=== PATIENT | female | born 1955 | race Caucasian/White ===

== ENCOUNTER → 2017-10-27 | Outpatient (CLI) | payer BC ==
--- NOTE | 2017-10-27 13:24 | BD ---
EXAMINATION TYPE: Axial Bone Density DATE OF EXAM: 10/27/2017 COMPARISON: NONE CLINICAL HISTORY: Height: 4 ft 10 1/2 in Weight: 134 FRAX RISK QUESTIONS: History of Fracture in Adulthood: YES RISK FACTORS HISTORY OF: Postmenopausal woman: AGE 48 MEDICATIONS: Additional Medications: PRILOSEC, CELEXA, TAZADONE, XANAX Additional History: EXAM MEASUREMENTS: Bone mineral densitometry was performed using the [employer] System. Bone mineral density as measured about the Lumbar spine is: ----- L1-L4(G/cm2): 1.125 T Score Values are as follows: ----- L2: -0.8 ----- L3: -0.1 ----- L4: 0.0 ----- L1-L4: -0.5 Bone mineral density has: INCREASED 1.3 % since study of: 2010 Bone mineral density about the R hip (g/cm2): 0.680 Bone mineral density about the L hip (g/cm2): 0.672 T Score values are as follows: -----R Neck: -2.6 -----L Neck: -2.6 -----R Total: -1.7 -----L Total: -1.9 Bone mineral density has: DECREASED -1.6 % since study of: 2010 IMPRESSION: Osteoporosis (T Score less than -2.5). There is increased fracture risk and therapy is usually indicated based on age. Re-Screen 1-2 years. NOTE: T-SCORE=SD OF THE YOUNG ADULT MEAN.
--- NOTE | 2017-10-31 10:34 | MM ---
Reason for exam: screening (asymptomatic). Last mammogram was performed 1 year and 10 months ago. History: Patient is postmenopausal. Family history of breast cancer in maternal cousin. Took estrogen for 3 years. Physical Findings: A clinical breast exam by your physician is recommended on an annual basis and results should be correlated with mammographic findings. MG Screening Mammo w CAD Bilateral CC and MLO view(s) were taken. Prior study comparison: December 17, 2015, bilateral MG screening mammo w CAD. March 01, 2014, bilateral MG screening mammo w CAD. There are scattered fibroglandular densities. There is chronic nodularity in the right breast. There is no discrete abnormality. ASSESSMENT: Benign, BI-RAD 2 RECOMMENDATION: Routine screening mammogram of both breasts in 1 year.
== END | disposition home or self-care (01) ==
LOC: RADMAMWWP 12:07
PROVIDERS: ATTEND Obstetrics & Gynecology
DX: Z12.31 Encounter for screening mammogram for malignant neoplasm of breast (principal); M81.0 Age-related osteoporosis without current pathological fracture
CPT/HCPCS: 77067; 77080

== ENCOUNTER → 2018-12-09 | Outpatient (CLI) | payer BC ==
--- NOTE | 2018-12-12 09:31 | MM ---
Reason for exam: screening (asymptomatic). Last mammogram was performed 1 year and 1 month ago. History: Patient is postmenopausal. Family history of breast cancer in maternal cousin. Took hormonal contraceptives for 20 years. Took estrogen for 3 years. Physical Findings: A clinical breast exam by your physician is recommended on an annual basis and results should be correlated with mammographic findings. MG Screening Mammo w CAD Bilateral CC and MLO view(s) were taken. Prior study comparison: October 27, 2017, bilateral MG screening mammo w CAD. December 17, 2015, bilateral MG screening mammo w CAD. There are scattered fibroglandular densities. Asymmetric breast tissue left outer breast, stable. There is no discrete abnormality. ASSESSMENT: Negative, BI-RAD 1 RECOMMENDATION: Routine screening mammogram of both breasts in 1 year.
== END ==
LOC: RADMAMWWP 10:59
PROVIDERS: ATTEND Obstetrics & Gynecology
DX: Z12.31 Encounter for screening mammogram for malignant neoplasm of breast (principal); Z80.3 Family history of malignant neoplasm of breast
CPT/HCPCS: 77067

== ENCOUNTER → 2020-10-10 | Outpatient (CLI) | payer BC ==
--- NOTE | 2020-10-14 08:53 | MM ---
Reason for exam: screening (asymptomatic). Last mammogram was performed 1 year and 10 months ago. History: Patient is postmenopausal. Family history of breast cancer in maternal cousin. Took hormonal contraceptives for 20 years. Took estrogen for 3 years. Physical Findings: A clinical breast exam by your physician is recommended on an annual basis and results should be correlated with mammographic findings. MG Screening Mammo w CAD Bilateral CC and MLO view(s) were taken. Prior study comparison: December 09, 2018, bilateral MG screening mammo w CAD. October 27, 2017, bilateral MG screening mammo w CAD. There are scattered fibroglandular densities. There is chronic nodularity in the right breast. No significant changes when compared with prior studies. ASSESSMENT: Negative, BI-RAD 1 RECOMMENDATION: Routine screening mammogram of both breasts in 1 year.
== END | disposition home or self-care (01) ==
LOC: RADMAMWWP 13:53
PROVIDERS: ATTEND Obstetrics & Gynecology
DX: Z12.31 Encounter for screening mammogram for malignant neoplasm of breast (principal); Z78.0 Asymptomatic menopausal state; Z80.3 Family history of malignant neoplasm of breast
CPT/HCPCS: 77067

== ENCOUNTER → 2021-11-25 | Outpatient (CLI) | payer BC ==
--- NOTE | 2021-11-27 08:03 | BD ---
EXAMINATION TYPE: Axial Bone Density DATE OF EXAM: 11/25/2021 COMPARISON: 10.27.2017 CLINICAL HISTORY: 66 years year old Female. ICD-10 CODE: N95.1 MENOPAUSAL Height: 59IN Weight: 141 FRAX RISK QUESTIONS: History of Fracture in Adulthood: YES Secondary Osteoporosis: RISK FACTORS HISTORY OF: Postmenopausal woman: YES Take estrogen and/or progesterone medications: ESTROGEN How lon Lost more than 2 inches in height since high school: YES MEDICATIONS: Additional Medications: REFLUX MED, Additional History: LT ANKLE FRACTURE EXAM MEASUREMENTS: Bone mineral densitometry was performed using the [employer] System. Bone mineral density as measured about the Lumbar spine is: ----- L1-L4(G/cm2): 1.126 T Score Values are as follows: ----- L1: -0.7 ----- L2: -0.9 ----- L3: -0.6 ----- L4: 0.2 ----- L1-L4: -0.5 Bone mineral density has: Decreased -1.3% since study of: 10.27.2017 Bone mineral density about the R hip (g/cm2): 0.794 Bone mineral density about the L hip (g/cm2): 0.738 T Score values are as follows: -----R Neck: -2.5 -----L Neck: -2.8 -----R Total: -1.7 -----L Total: -2.1 Bone mineral density has: Decreased -2.4% since study of: 10.27.2017 FRAX%s: The graph provided illustrates a 25% chance for a major osteoporotic fx and a 6.9% chance for the hips probability for fx in 10 years time. IMPRESSION: Osteopenia (T Score between -2.5 and -1). There is slightly increased risk of fracture and the patient may be considered for treatment. Re-Screen 2-5 years. NOTE: T-SCORE=SD OF THE YOUNG ADULT MEAN.
== END | disposition home or self-care (01) ==
LOC: RADMAMWWP 14:24
PROVIDERS: ATTEND Obstetrics & Gynecology
DX: Z12.31 Encounter for screening mammogram for malignant neoplasm of breast (principal); Z78.0 Asymptomatic menopausal state
CPT/HCPCS: 77063; 77067; 77080

== ENCOUNTER → 2023-02-21 | Outpatient (CLI) | payer BC ==
--- NOTE | 2023-02-23 08:32 | MM ---
Reason for Exam: Screening (asymptomatic). Last mammogram was performed 1 year(s) and 3 month(s) ago. Patient History: Menarche at age 12. First Full-Term at age 22. Left ovary removed at age 48. Right ovary removed at age 48. Hysterectomy at age 48. Postmenopausal. Patient used Estrogen for 3 years. Patient used Hormonal Contraceptives for 20 years. Maternal cousin had breast cancer, age 46. Risk Values: Ly 5 year model risk: 1.5%. NCI Lifetime model risk: 5.0%. Prior Study Comparison: 12/09/2018 Bilateral Screening Mammogram, [facility]. 10/10/2020 Bilateral Screening Mammogram, [facility]. 11/25/2021 Bilateral MG 3D screening mammo w/cad, [facility]. Tissue Density: There are scattered fibroglandular densities. Findings: Analyzed By CAD. There is no suspicious group of microcalcifications or new suspicious mass in either breast. Overall Assessment: Negative, BI-RAD 1 Management: Screening Mammogram of both breasts in 1 year. . Patient should continue monthly self-breast exams. A clinical breast exam by your physician is recommended on an annual basis. This exam should not preclude additional follow-up of suspicious palpable abnormalities. Note on Ly scores and lifetime risk: 1. A Ly score greater than 3% is considered moderate risk. If this is the case, consider specialist referral to assess eligibility for a risk reducing agent. 2. If overall lifetime risk for the development of breast cancer is 20% or higher, the patient may qualify for future screening with alternating mammogram and breast MRI. Electronically signed and approved by: Jose Torres M.D. Radiologis
== END | disposition home or self-care (01) ==
LOC: RADMAMWWP 09:24
PROVIDERS: ATTEND Obstetrics & Gynecology
DX: Z12.31 Encounter for screening mammogram for malignant neoplasm of breast (principal); Z78.0 Asymptomatic menopausal state; Z80.3 Family history of malignant neoplasm of breast
CPT/HCPCS: 77063; 77067

== ENCOUNTER 2023-04-06 13:31 | Inpatient (IN) | payer BC, MEDICARE ==
--- NOTE | 2023-04-06 13:58 | ED ---
Abdominal Pain HPI - General Source: patient, RN notes reviewed <Goldie Richard - Last Filed: 04/06/23 13:55> - General Source: RN notes reviewed, old records reviewed Limitations: no limitations - History of Present Illness MD Complaint: abdominal pain -: hour(s) Location: suprapubic Radiation: suprapubic Migration to: epigastric Severity: severe Severity scale (1-10): 9 Quality: cramping, stabbing, aching Consistency: constant Improves With: nothing Worsens With: nothing Associated Symptoms: nausea Treatments Prior to Arrival: other (0) <Beto Reddy - Last Filed: 04/13/23 11:47> - General Stated Complaint: abd pain Time Seen by Provider: 04/06/23 13:55 - History of Present Illness Initial Comments: Patient is a 67-year-old female presenting to the ER via EMS with a chief complaint of abdominal pain. patient states she started Celebrex for knee pain. Patient reports this morning she woke up with excruciating lower abdominal pain with nausea and chills. She was seen by PCP and was told to come to ER for further evaluation. (Goldie Richard) This is a 67-year-old female to the ER for evaluation of abdominal pain. Patient is here for severe excruciating lower abdominal pain with nausea vomiting and chills. (Beto Reddy) - Related Data Home Medications Medication Instructions Recorded Confirmed ALPRAZolam [Xanax] 0.25 mg PO TID PRN 04/06/23 04/06/23 Citalopram Hydrobromide [CeleXA] 40 mg PO DAILY 04/06/23 04/06/23 Elderberry Fruit [Elderberry] 350 mg PO DAILY 04/06/23 04/06/23 Multivitamins, Thera [Multivitamin 1 tab PO DAILY 04/06/23 04/06/23 (formulary)] Omeprazole 20 mg PO DAILY 04/06/23 04/06/23 traZODone HCL [Desyrel] 50 mg PO HS 04/06/23 04/06/23 Previous Rx's Medication Instructions Recorded Docusate [Colace] 100 mg PO BID #30 capsule 04/08/23 HYDROcodone/APAP 5-325MG [Davison 1 tab PO Q6HR PRN 3 Days #12 tab 04/08/23 5-325] Ibuprofen [Motrin] 600 mg PO Q8HR PRN #30 tab 04/08/23 Oseltamivir 6Mg/ml Oral Susp 30 mg PO Q12HR 3 Days #6 each 04/08/23 [Tamiflu] Amoxic-Pot Clav 875-125Mg 1 tab PO BID 3 Days #6 tab 04/10/23 [Augmentin 875-125] HYDROcodone/APAP 5-325MG [Davison 1 tab PO Q6HR PRN 3 Days #10 tab 04/10/23 5-325] Allergies Allergy/AdvReac Type Severity Reaction Status Date / Time azithromycin Allergy Unknown Verified 04/07/23 10:22 [From Zithromax Z-Bhupinder] erythromycin base Allergy Unknown Verified 04/07/23 10:22 morphine Allergy Hallucinati Verified 04/07/23 10:22 ons prednisone Allergy Unknown Verified 04/07/23 10:22 Review of Systems ROS Other: All systems not noted in ROS Statement are negative. <Goldie Richard - Last Filed: 04/06/23 13:55> ROS Other: All systems not noted in ROS Statement are negative. <Beto Reddy - Last Filed: 04/13/23 11:47> ROS Statement: Those systems with pertinent positive or pertinent negative responses have been documented in the HPI. General Exam <Goldie Richard - Last Filed: 04/06/23 13:55> General appearance: alert, in no apparent distress, anxious Head exam: Present: atraumatic, normocephalic, normal inspection Eye exam: Present: normal appearance, PERRL, EOMI. Absent: scleral icterus, conjunctival injection, periorbital swelling ENT exam: Present: normal exam, mucous membranes moist Neck exam: Present: normal inspection. Absent: tenderness, meningismus, lymphadenopathy Respiratory exam: Present: normal lung sounds bilaterally. Absent: respiratory distress, wheezes, rales, rhonchi, stridor Cardiovascular Exam: Present: regular rate, normal rhythm, normal heart sounds. Absent: systolic murmur, diastolic murmur, rubs, gallop, clicks GI/Abdominal exam: Present: soft, normal bowel sounds. Absent: distended, tenderness, guarding, rebound, rigid Extremities exam: Present: normal inspection, full ROM, normal capillary refill. Absent: tenderness, pedal edema, joint swelling, calf tenderness Back exam: Present: normal inspection Neurological exam: Present: alert, oriented X3, CN II-XII intact Psychiatric exam: Present: normal affect, normal mood Skin exam: Present: warm, dry, intact, normal color. Absent: rash <Beto Reddy - Last Filed: 04/13/23 11:47> - General Exam Comments Initial Comments: Visual Physical Exam Vital signs reviewed General: Well-appearing, nontoxic, no acute distress., appears uncomfortable and in pain Head: Normocephalic, atraumatic Eyes: PERRLA, EOMI ENT: Airway patent Chest: Nonlabored breathing Skin: No visual rash, normal skin tone Neuro: Alert and oriented 3 Musculoskeletal: No gross abnormalities (Goldie Richard) Course <Beto Reddy - Last Filed: 04/13/23 11:47> Vital Signs 04/06/23 04/06/23 04/06/23 14:48 17:19 20:00 Temperature 98.8 F 97.9 F Pulse Rate 60 59 L Respiratory 18 16 16 Rate Blood Pressure 139/77 127/71 O2 Sat by Pulse 97 98 Oximetry - Reevaluation(s) Reevaluation #1: 04/06/23 18:19 Medical record is reviewed (Beto Reddy) Reevaluation #2: 04/06/23 18:19 Patient's pain is controlled (Beto Reddy) Reevaluation #3: 04/06/23 18:19 Patient informed of results and questions answered (Beto Reddy) Reevaluation #4: 04/06/23 18:20 Was pt. sent in by a medical professional or institution (, PA, KIDS CLUB ATTENDANT, urgent care, hospital, or alf...) When possible be specific @ -no Did you speak to anyone other than the patient for history (EMS, parent, family, police, friend...)? What history was obtained from this source @ -no Did you review nursing and triage notes (agree or disagree)? Why? @ -agree Are old charts reviewed (outside hosp., previous admission, EMS record, old EKG, old radiological studies, urgent care reports/EKG's, alf records)? Report findings @ -yes Differential Diagnosis (chest pain, altered mental status, abdominal pain women, abdominal pain men, vaginal bleeding, weakness, fever, dyspnea, syncope, headache, dizziness, GI bleed, back pain, seizure, CVA, palpatations, mental health, musculoskeletal)? @ -prior EKG interpreted by me (3pts min.). @ -no X-rays interpreted by me (1pt min.). @ -yes negative for acute disease CT interpreted by me (1pt min.). @ -Yes positive for appendicitis U/S interpreted by me (1pt. min.). @ -no What testing was considered but not performed or refused? (CT, X-rays, U/S, labs)? Why? @ -none What meds were considered but not given or refused? Why? @ -none Did you discuss the management of the patient with other professionals (professionals i.e. , PA, KIDS CLUB ATTENDANT, lab, RT, psych nurse, manager social media, order dispatcher, teacher, consumer loan officer, lining caser)? Give summary @ -no Was smoking cessation discussed for >3mins.? @ -no Was critical care preformed (if so, how long)? @ -no Were there social determinants of health that impacted care today? How? (Homelessness, low income, unemployed, alcoholism, drug addiction, t ransportation, low edu. Level, literacy, decrease access to med. care, nursing home, rehab)? @ -none Was there de-escalation of care discussed even if they declined (Discuss DNR or withdrawal of care, Hospice)? DNR status @ -no What co-morbidities impacted this encounter? (DM, HTN, Smoking, COPD, CAD, Can cer, CVA, ARF, Chemo, Hep., AIDS, mental health diagnosis, sleep apnea, morbid obesity)? @ -none Was patient admitted / discharged? Hospital course, mention meds given and route, prescriptions, significant lab abnormalities, going to OR and other pertinent info. @ - 67 female positive for appendicitis and influenza. Patient will be admitted for surgical evaluation and treatment Admitted Undiagnosed new problem with uncertain prognosis? @ -no Drug Therapy requiring intensive monitoring for toxicity (Heparin, Nitro, Insulin, Cardizem)? @ -no Were any procedures done? @ -no Diagnosis/symptom? @ -Appendicitis and influenza Acute, or Chronic, or Acute on Chronic? @ -Acute Uncomplicated (without systemic symptoms) or Complicated (systemic symptoms)? @ -Complicated Side effects of treatment? @ -no Exacerbation, Progression, or Severe Exacerbation? @ -exacerbation Poses a threat to life or bodily function? How? (Chest pain, [place], [place], pneumonia, PE, COPD, DKA, ARF, appy, cholecystitis, CVA, Diverticulitis, Homicidal, Suicidal, threat to staff... and all critical care pts) @ -yes patient has appendicitis requiring surgery (Beto Reddy) Reevaluation #5: 04/06/23 18:20 Differential Abdominal Pain Women: Appendicitis, Cholecystitis, diverticulosis, ischemic bowel, pancreatitis, hepatitis, UTI, gastroenteritis, AAA, incarcerated hernia, bowel obstruction, constipation, inflammatory bowel, hepatitis, peptic ulcer disease, splenic infarction, perforated viscus, vulvitis, ovarian torsion, PID, kidney stone, placenta abruption, this is not meant to be an all-inclusive list (Beto Reddy) - Consultations Consultation #1: Spoke with Dr. Jacinto who agrees to admit this patient (Beto Reddy) Medical Decision Making <Goldie Rihcard - Last Filed: 04/06/23 13:55> - Lab Data Result diagrams: 04/10/23 05:59 04/10/23 05:59 - Radiology Data Radiology results: report reviewed (CT abdomen pelvis positive for appendicitis, chest x-ray is negative for acute disease), image reviewed <Beto Reddy - Last Filed: 04/13/23 11:47> - Medical Decision Making I performed the quick note portion of the exam. Electronically signed by Goldie Richard PA-C (Goldie Richard) 67 female positive for appendicitis and influenza. Patient will be admitted for surgical evaluation and treatment (Beto Reddy) - Lab Data Lab Results 04/06/23 04/06/23 04/06/23 Range/Units 14:10 14:10 14:10 WBC 22.7 H (3.8-10.6) k/uL RBC 4.38 (3.80-5.40) m/uL Hgb 13.1 (11.4-16.0) gm/dL Hct 38.2 (34.0-46.0) % MCV 87.2 (80.0-100.0) fL MCH 29.9 (25.0-35.0) pg MCHC 34.3 (31.0-37.0) g/dL RDW 13.1 (11.5-15.5) % Plt Count 313 (150-450) k/uL MPV 7.8 Sodium 138 (137-145) mmol/L Potassium 4.3 (3.5-5.1) mmol/L Chloride 108 H (98-107) mmol/L Carbon Dioxide 20 L (22-30) mmol/L Anion Gap 10 mmol/L BUN 24 H (7-17) mg/dL Creatinine 0.75 (0.52-1.04) mg/dL Est GFR (CKD-EPI)AfAm >90 (>60 ml/min/1.73 sqM) Est GFR (CKD-EPI)NonAf 82 (>60 ml/min/1.73 sqM) Glucose 97 (74-99) mg/dL Plasma Lactic Acid Kingsley (0.7-2.0) mmol/L Calcium 10.0 (8.4-10.2) mg/dL Total Bilirubin 0.5 (0.2-1.3) mg/dL AST 32 (14-36) U/L ALT 22 (4-34) U/L Alkaline Phosphatase 84 (38-126) U/L Troponin I (0.000-0.034) ng/mL Total Protein 7.3 (6.3-8.2) g/dL Albumin 4.5 (3.5-5.0) g/dL Amylase 68 (30-110) U/L Lipase 99 (23-300) U/L Urine Color Urine Appearance (Clear) Urine pH (5.0-8.0) Ur Specific [place] (1.001-1.035) Urine Protein (Negative) Urine Glucose (UA) (Negative) Urine Ketones (Negative) Urine Blood (Negative) Urine Nitrite (Negative) Urine Bilirubin (Negative) Urine Urobilinogen (<2.0) mg/dL Ur Leukocyte Esterase (Negative) Influenza Type A (PCR) Detected A (Not Detectd) Influenza Type B (PCR) Not Detected (Not Detectd) RSV (PCR) Not Detected (Not Detectd) SARS-CoV-2 (PCR) Not Detected (Not Detectd) 04/06/23 04/06/23 04/06/23 Range/Units 14:10 14:15 14:20 WBC (3.8-10.6) k/uL RBC (3.80-5.40) m/uL Hgb (11.4-16.0) gm/dL Hct (34.0-46.0) % MCV (80.0-100.0) fL MCH (25.0-35.0) pg MCHC (31.0-37.0) g/dL RDW (11.5-15.5) % Plt Count (150-450) k/uL MPV Sodium (137-145) mmol/L Potassium (3.5-5.1) mmol/L Chloride (98-107) mmol/L Carbon Dioxide (22-30) mmol/L Anion Gap mmol/L BUN (7-17) mg/dL Creatinine (0.52-1.04) mg/dL Est GFR (CKD-EPI)AfAm (>60 ml/min/1.73 sqM) Est GFR (CKD-EPI)NonAf (>60 ml/min/1.73 sqM) Glucose (74-99) mg/dL Plasma Lactic Acid Kingsley 1.9 (0.7-2.0) mmol/L Calcium (8.4-10.2) mg/dL Total Bilirubin (0.2-1.3) mg/dL AST (14-36) U/L ALT (4-34) U/L Alkaline Phosphatase (38-126) U/L Troponin I <0.012 (0.000-0.034) ng/mL Total Protein (6.3-8.2) g/dL Albumin (3.5-5.0) g/dL Amylase (30-110) U/L Lipase (23-300) U/L Urine Color Light Yellow Urine Appearance Clear (Clear) Urine pH 8.5 H (5.0-8.0) Ur Specific [place] 1.022 (1.001-1.035) Urine Protein Trace H (Negative) Urine Glucose (UA) Negative (Negative) Urine Ketones Negative (Negative) Urine Blood Negative (Negative) Urine Nitrite Negative (Negative) Urine Bilirubin Negative (Negative) Urine Urobilinogen <2.0 (<2.0) mg/dL Ur Leukocyte Esterase Negative (Negative) Influenza Type A (PCR) (Not Detectd) Influenza Type B (PCR) (Not Detectd) RSV (PCR) (Not Detectd) SARS-CoV-2 (PCR) (Not Detectd) 04/06/23 Range/Units 15:34 WBC (3.8-10.6) k/uL RBC (3.80-5.40) m/uL Hgb (11.4-16.0) gm/dL Hct (34.0-46.0) % MCV (80.0-100.0) fL MCH (25.0-35.0) pg MCHC (31.0-37.0) g/dL RDW (11.5-15.5) % Plt Count (150-450) k/uL MPV Sodium (137-145) mmol/L Potassium (3.5-5.1) mmol/L Chloride (98-107) mmol/L Carbon Dioxide (22-30) mmol/L Anion Gap mmol/L BUN (7-17) mg/dL Creatinine (0.52-1.04) mg/dL Est GFR (CKD-EPI)AfAm (>60 ml/min/1.73 sqM) Est GFR (CKD-EPI)NonAf (>60 ml/min/1.73 sqM) Glucose (74-99) mg/dL Plasma Lactic Acid Kingsley 1.4 (0.7-2.0) mmol/L Calcium (8.4-10.2) mg/dL Total Bilirubin (0.2-1.3) mg/dL AST (14-36) U/L ALT (4-34) U/L Alkaline Phosphatase (38-126) U/L Troponin I (0.000-0.034) ng/mL Total Protein (6.3-8.2) g/dL Albumin (3.5-5.0) g/dL Amylase (30-110) U/L Lipase (23-300) U/L Urine Color Urine Appearance (Clear) Urine pH (5.0-8.0) Ur Specific [place] (1.001-1.035) Urine Protein (Negative) Urine Glucose (UA) (Negative) Urine Ketones (Negative) Urine Blood (Negative) Urine Nitrite (Negative) Urine Bilirubin (Negative) Urine Urobilinogen (<2.0) mg/dL Ur Leukocyte Esterase (Negative) Influenza Type A (PCR) (Not Detectd) Influenza Type B (PCR) (Not Detectd) RSV (PCR) (Not Detectd) SARS-CoV-2 (PCR) (Not Detectd) Disposition <Goldie Richard - Last Filed: 04/06/23 13:55> Is patient prescribed a controlled substance at d/c from ED?: No Time of Disposition: 18:10 <Beto Reddy - Last Filed: 04/13/23 11:47> Clinical Impression: Abdominal pain, Appendicitis, Influenza A Disposition: ADMITTED IP TO THIS HOSP Condition: Fair
[2023-04-06 14:31] LABS: Appearance,Urine Clear (Clear); Bilirubin,Urine Negative (Negative); Blood,Urine Negative (Negative); Color,Urine Light Yellow; Glucose,Urine (UA) Negative (Negative); Ketones,Urine Negative (Negative); Leukocyte Esterase,Urine Negative (Negative); Nitrite,Urine Negative (Negative); PH, Urine 8.5 (5.0-8.0); Protein,Urine Trace (Negative); Specific Gravity,Urine 1.022 (1.001-1.035); Urobilinogen,Urine <2.0 mg/dL (<2.0)
[2023-04-06 15:44] LABS: HCT 38.2 % (34.0-46.0); HGB 13.1 gm/dL (11.4-16.0); MCH 29.9 pg (25.0-35.0); MCHC 34.3 g/dL (31.0-37.0); MCV 87.2 fL (80.0-100.0); Mean Platelet Volume 7.8; Platelet Count 313 k/uL (150-450); RBC 4.38 m/uL (3.80-5.40); RDW 13.1 % (11.5-15.5); WBC 22.7 k/uL (3.8-10.6)
[2023-04-06] MEDS: SODIUM CHLORIDE 0.9% 500 ML 500 ML IV STA (15:49)
[2023-04-06] MEDS: ONDANSETRON 4 MG/2 ML VIAL IVP STA (15:49)
[2023-04-06] MEDS: SODIUM CHLORIDE 0.9% 1,000 ML IV STA (15:49)
[2023-04-06 16:06] LABS: ALT 22 U/L (4-34); AST 32 U/L (14-36); African American GFR (CKD) >90 (>60 ml/min/1.73 sqM); Albumin 4.5 g/dL (3.5-5.0); Alkaline Phosphatase 84 U/L (38-126); Amylase 68 U/L (30-110); Anion Gap 10 mmol/L; Blood Urea Nitrogen 24 mg/dL (7-17); Carbon Dioxide 20 mmol/L (22-30); Chloride 108 mmol/L (98-107); Glucose 97 mg/dL (74-99); Lipase 99 U/L (23-300); Non-African American GFR(CKD) 82 (>60 ml/min/1.73 sqM); Potassium 4.3 mmol/L (3.5-5.1); Sodium 138 mmol/L (137-145); Total Bilirubin 0.5 mg/dL (0.2-1.3); Total Protein 7.3 g/dL (6.3-8.2)
--- NOTE | 2023-04-06 16:37 | CT ---
EXAMINATION TYPE: CT abdomen pelvis w con DATE OF EXAM: 04/06/2023 COMPARISON: 10/24/2009 INDICATION: abdominal pain, cramping DLP: 692 mGycm, Automated exposure control for dose reduction was used. CONTRAST: 100 mL of Isovue 300. Study performed without Oral Contrast TECHNIQUE: Axial images were obtained from above the diaphragm to the pubic rami in the axial plane a t 5 mm thick sections. Reconstructed images are reviewed on the computer in the coronal plane. FINDINGS: Limited CT sections are obtained the lung bases. The lung bases are clear. Small to moderate sized hiatal hernia is present CT ABDOMEN: Liver: There is marked enlargement of a large hepatic cyst in the right lobe liver currently measurin g 9.7 x 6.8 cm. Spleen: Normal Pancreas: Normal Adrenal glands: The adrenal glands are normal. Gallbladder: Surgically absent Kidneys: No masses are evident. No hydronephrosis is present. No cysts are present. Delayed images were obtained through the kidneys which remain unremarkable. Aorta: Normal Inferior vena cava: Normal. CT PELVIS: Loops of bowel within the abdomen and pelvis are normal. Scattered diverticuli are present within the sigmoid colon without evidence of acute diverticulitis. The studies without oral contrast limitin g bowel evaluation. Appendix: The appendix is dilated measuring 1.1 cm. Normal less than 0.7 cm. Very minimal inflammator y change may be adjacent. No obstructing appendicolith is identified. No abscess formation or free ai r is evident. Findings could suggest very early appendicitis. Clinical management of any suspected ap pendicitis is recommended. Urinary bladder: Normal. Genitourinary structures: Uterus and ovaries are not identified. Osseous structures: No suspicious lytic or sclerotic lesions. IMPRESSION: 1. Dilated appendix at 1.1 cm. Very minimal adjacent inflammatory change may be present. Clinical ma nagement of any suspected early appendicitis is recommended. 2. Enlarged hepatic cyst 3. Diverticulosis without acute diverticulitis.
[2023-04-06] MEDS: HYDROmorphone 1 MG/ML 1 ML SYRINGE IVP STA (17:37)
--- NOTE | 2023-04-06 18:13 | XR ---
EXAMINATION TYPE: XR chest 2V DATE OF EXAM: 04/06/2023 5:49 PM CLINICAL INDICATION:Female, 67 years old with history of cough; [facility] COMPARISON: None TECHNIQUE: XR chest 2V Frontal and lateral views of the chest. FINDINGS: Lungs/Pleura: There is no evidence of pleural effusion, focal consolidation, or pneumothorax. Pulmonary vascularity: Unremarkable. Heart/mediastinum: Cardiomediastinal silhouette is unremarkable. Musculoskeletal: No acute osseous pathology. IMPRESSION: No acute cardiopulmonary disease/process.
[2023-04-06] MEDS ORDERED: NALOXONE 0.4 MG/ML 1 ML VIAL IV PRN (18:17)
[2023-04-06] MEDS: ONDANSETRON 4 MG/2 ML VIAL IVP PRN (19:12)
[2023-04-06] MEDS: OSELTAMIVIR 75 MG CAP PO STA (19:22)
[2023-04-06] MEDS: SODIUM CHLORIDE 0.9% 1,000 ML IV SCH (19:23)
[2023-04-06] MEDS: AMPICILLIN-SULBACTAM 3 GM in SODIUM CHLORIDE 0.9% 100 ML IVPB STA (19:26)
[2023-04-06] MEDS: ALPRAZolam 0.25 MG TAB PO PRN (22:11)
[2023-04-06] MEDS: traZODone HCL 50 MG TAB PO SCH (22:11)
[2023-04-06] MEDS: HYDROmorphone 1 MG/ML 1 ML SYRINGE IVP PRN (22:11)
[2023-04-07] MEDS: AMPICILLIN-SULBACTAM 3 GM in SODIUM CHLORIDE 0.9% 100 ML IVPB SCH (01:11)
[2023-04-07] MEDS: OSELTAMIVIR 75 MG CAP PO SCH (07:53)
[2023-04-07 09:48] LABS: Basophils % (A) 0 %; Eosinophils % (A) 0 %; HCT 36.3 % (34.0-46.0); HGB 11.7 gm/dL (11.4-16.0); Lymphocytes # (A) 1.4 k/uL (1.0-4.8); Lymphocytes % (A) 10 %; MCH 29.1 pg (25.0-35.0); MCHC 32.2 g/dL (31.0-37.0); MCV 90.4 fL (80.0-100.0); Mean Platelet Volume 7.7; Monocytes # (A) 0.7 k/uL (0-1.0); Monocytes % (A) 5 %; Neutrophils # (A) 11.8 k/uL (1.3-7.7); Neutrophils % (A) 84 %; Platelet Count 269 k/uL (150-450); RBC 4.01 m/uL (3.80-5.40); RDW 13.7 % (11.5-15.5)
--- NOTE | 2023-04-07 09:59 | P.GSHP ---
History of Present Illness H&P Date: 04/07/23 CHIEF COMPLAINT: Abdominal pain HISTORY OF PRESENT ILLNESS: This is a 67-year-old female who presented to the hospital with complaints of abdominal pain with weakness and dry heaves that started yesterday. Patient had a couple episodes of diarrhea. She also had chills and sweats. She reports that the pain was very severe yesterday prior to coming in. She reports that the pain was located across the lower abdomen and moved up in a circular formation towards the umbilicus. CT scan abdomen and pelvis did show evidence of a dilated appendix 1.1 cm. Very minimal adjacent inflammatory changes. Patient did have evidence of leukocytosis. She is also influenza A positive. She has been on Celebrex over the last 3 days for her knee pain. Patient denies any cardiac history. Past surgical history does include cholecystectomy, hysterectomy and 3 C-sections. Patient currently denies any abdominal pain since she received pain medication this morning. Patient denies any cough or shortness of breath. PAST MEDICAL HISTORY: Depression, anxiety PAST SURGICAL HISTORY: see below MEDICATIONS: See below ALLERGIES: See below SOCIAL HISTORY: No illicit drug use. REVIEW OF SYSTEMS: CONSTITUTIONAL: Denies fever or chills. HEENT: Denies blurred vision, vision changes, or eye pain. Denies hemoptysis CARDIOVASCULAR: Denies chest pain or pressure. RESPIRATORY: No shortness of breath. GASTROINTESTINAL: See HPI for pertinent findings HEMATOLOGIC: Denies bleeding disorders. GENITOURINARY: Denies any blood in urine or increased urinary frequency. SKIN: Denies pruitis. Denies rash. PHYSICAL EXAM: VITAL SIGNS: Reviewed GENERAL: Well-developed in no acute distress. HEENT: No sclera icterus. Extraocular movements grossly intact. Moist buccal mucosa. Head is atraumatic, normocephalic. No nasal drainage. ABDOMEN: Soft. Nondistended. Nontender. Patient has received pain medicine NEUROLOGIC: Alert and oriented. Cranial nerves II through XII grossly intact. LABORATORY DATA: WBC 22.7 down to 14 Hgb 11.7 platelets 269 Sodium 138 potassium is 4.3 creatinine 0.75 Lactic acid 1.4 Liver enzymes normal lipase 99 Urinalysis negative for infection Influenza A detected IMAGING: CT scan abdomen pelvis reports dilated appendix at 1.1 cm. Very minimal adjacent inflammatory change may be present. Clinical management of any suspected early appendicitis is recommended. Enlarged hepatic cyst. Diverticulosis without acute diverticulitis. ASSESSMENT: 1. Acute appendicitis 2. Influenza A positive PLAN: -Patient scheduled for laparoscopic appendectomy today with Dr. Bray -Continue IV antibiotics -Continue IV fluids -Continue pain management Physician Credit Operations Specialist note has been reviewed by physician. Signing provider agrees with the documented findings, assessment, and plan of care. I have personally seen and examined the patient, reviewed the PROJECT DEVELOPMENT MANAGER /PAs history, e xam and MDM and agree with the assessment and plan as written. Based on total visit time, I have performed more than 50% of the visit. As above: Patient seen and evaluated. Started having intense lower abdominal pain right greater than left yesterday. Came to the ER and had CAT scan performed. CAT scan reviewed and does demonstrate appendiceal inflammation. Patient also with influenza A. She is not having many symptoms from that currently. White blood cell count is elevated which could be a combination of her influenza and appendicitis. Options and clinical scenario discussed with patient. Will proceed with laparoscopic, possible open appendectomy at this time. Risks of bleeding, infection, abscess, conversion to an open procedure, leak, hernia, bladder bowel and ureteral injury. Patient is agreeable and would like to proceed. Past Medical History Past Medical History: Hyperlipidemia Additional Past Medical History / Comment(s): "racing heart" History of Any Multi-Drug Resistant Organisms: None Reported Past Surgical History: Adenoidectomy, Section, Hysterectomy, Orthopedic Surgery Past Psychological History: Anxiety Smoking Status: Never smoker Past Alcohol Use History: Occasional Past Drug Use History: None Reported Medications and Allergies Home Medications Medication Instructions Recorded Confirmed Type ALPRAZolam [Xanax] 0.25 mg PO TID PRN 04/06/23 04/06/23 History Celecoxib [CeleBREX] 200 mg PO ONCE PRN 04/06/23 04/06/23 History Citalopram Hydrobromide [CeleXA] 40 mg PO DAILY 04/06/23 04/06/23 History Elderberry Fruit [Elderberry] 350 mg PO DAILY 04/06/23 04/06/23 History Multivitamins, Thera [Multivitamin 1 tab PO DAILY 04/06/23 04/06/23 History (formulary)] Omeprazole 20 mg PO DAILY 04/06/23 04/06/23 History traZODone HCL [Desyrel] 50 mg PO HS 04/06/23 04/06/23 History Allergies Allergy/AdvReac Type Severity Reaction Status Date / Time azithromycin Allergy Unknown Verified 04/07/23 10:22 [From Zithromax Z-Bhupinder] erythromycin base Allergy Unknown Verified 04/07/23 10:22 morphine Allergy Hallucinati Verified 04/07/23 10:22 ons prednisone Allergy Unknown Verified 04/07/23 10:22 Surgical - Exam Vital Signs Temp Pulse Resp BP Pulse Ox 98.8 F 60 18 139/77 97 04/06/23 14:48 04/06/23 14:48 04/06/23 14:48 04/06/23 14:48 04/06/23 14:48 Results - Labs 04/07/23 09:08 04/07/23 09:08 Abnormal Lab Results - Last 24 Hours (Table) 04/06/23 04/06/23 04/06/23 Range/Units 14:10 14:10 14:10 WBC 22.7 H (3.8-10.6) k/uL Neutrophils # (1.3-7.7) k/uL Chloride 108 H (98-107) mmol/L Carbon Dioxide 20 L (22-30) mmol/L BUN 24 H (7-17) mg/dL Urine pH (5.0-8.0) Urine Protein (Negative) Influenza Type A (PCR) Detected A (Not Detectd) 04/06/23 04/07/23 Range/Units 14:20 09:08 WBC 14.0 H (3.8-10.6) k/uL Neutrophils # 11.8 H (1.3-7.7) k/uL Chloride (98-107) mmol/L Carbon Dioxide (22-30) mmol/L BUN (7-17) mg/dL Urine pH 8.5 H (5.0-8.0) Urine Protein Trace H (Negative) Influenza Type A (PCR) (Not Detectd) Diabetes panel 04/06/23 Range/Units 14:10 Sodium 138 (137-145) mmol/L Potassium 4.3 (3.5-5.1) mmol/L Chloride 108 H (98-107) mmol/L Carbon Dioxide 20 L (22-30) mmol/L BUN 24 H (7-17) mg/dL Creatinine 0.75 (0.52-1.04) mg/dL Glucose 97 (74-99) mg/dL Calcium 10.0 (8.4-10.2) mg/dL AST 32 (14-36) U/L ALT 22 (4-34) U/L Alkaline Phosphatase 84 (38-126) U/L Total Protein 7.3 (6.3-8.2) g/dL Albumin 4.5 (3.5-5.0) g/dL Calcium panel 04/06/23 Range/Units 14:10 Calcium 10.0 (8.4-10.2) mg/dL Albumin 4.5 (3.5-5.0) g/dL Pituitary panel 04/06/23 Range/Units 14:10 Sodium 138 (137-145) mmol/L Potassium 4.3 (3.5-5.1) mmol/L Chloride 108 H (98-107) mmol/L Carbon Dioxide 20 L (22-30) mmol/L BUN 24 H (7-17) mg/dL Creatinine 0.75 (0.52-1.04) mg/dL Glucose 97 (74-99) mg/dL Calcium 10.0 (8.4-10.2) mg/dL Adrenal panel 04/06/23 Range/Units 14:10 Sodium 138 (137-145) mmol/L Potassium 4.3 (3.5-5.1) mmol/L Chloride 108 H (98-107) mmol/L Carbon Dioxide 20 L (22-30) mmol/L BUN 24 H (7-17) mg/dL Creatinine 0.75 (0.52-1.04) mg/dL Glucose 97 (74-99) mg/dL Calcium 10.0 (8.4-10.2) mg/dL Total Bilirubin 0.5 (0.2-1.3) mg/dL AST 32 (14-36) U/L ALT 22 (4-34) U/L Alkaline Phosphatase 84 (38-126) U/L Total Protein 7.3 (6.3-8.2) g/dL Albumin 4.5 (3.5-5.0) g/dL
[2023-04-07] MEDS: HEPARIN SODIUM,PORCINE 5,000 UNIT/ML 1 ML VIAL SQ ONE (10:05)
[2023-04-07 10:07] LABS: ALT 31 U/L (4-34); AST 38 U/L (14-36); African American GFR (CKD) >90 (>60 ml/min/1.73 sqM); Albumin 3.3 g/dL (3.5-5.0); Alkaline Phosphatase 64 U/L (38-126); Anion Gap 5 mmol/L; Blood Urea Nitrogen 18 mg/dL (7-17); Calcium 8.4 mg/dL (8.4-10.2); Carbon Dioxide 21 mmol/L (22-30); Chloride 115 mmol/L (98-107); Glucose 81 mg/dL (74-99); Magnesium 2.1 mg/dL (1.6-2.3); Non-African American GFR(CKD) 82 (>60 ml/min/1.73 sqM); Phosphorus 3.8 mg/dL (2.5-4.5); Potassium 4.4 mmol/L (3.5-5.1); Sodium 141 mmol/L (137-145); Total Bilirubin 0.4 mg/dL (0.2-1.3); Total Protein 5.8 g/dL (6.3-8.2)
[2023-04-07] MEDS: DEXAMETHASONE SOD PHOSPHATE 4 MG/ML 1 ML VIAL IVP ONE (10:08)
[2023-04-07] MEDS: BUPIVACAINE (PF) 0.25% 30 ML VIAL SQ ONE ×2 (10:13→10:49)
[2023-04-07] MEDS ORDERED: NEOSTIGMINE 1 MG/ML 10 ML VIAL ONE (10:25)
[2023-04-07] MEDS ORDERED: LIDOCAINE 1% INJ 10MG/ML (20 ML MDV) ONE (10:25)
[2023-04-07] MEDS ORDERED: PROPOFOL 10 MG/ML 20 ML VIAL IV ONE (10:25)
[2023-04-07] MEDS ORDERED: SUCCINYLCHOLINE CHLORIDE 200 MG/10 ML VIAL IV ONE (10:25)
[2023-04-07] MEDS ORDERED: GLYCOPYRROLATE 0.2 MG/ML 2 ML VIAL ONE (10:25)
[2023-04-07] MEDS ORDERED: ROCURONIUM 10 MG/ML (5 ML VIAL) IV ONE (10:25)
[2023-04-07] MEDS ORDERED: MIDAZOLAM 2 MG/2 ML VIAL ONE (10:25)
[2023-04-07] MEDS ORDERED: ePHEDrine 50 MG/ML 1 ML VIAL ONE (10:25)
[2023-04-07] MEDS ORDERED: fentaNYL (PF) 50 MCG/ML 2 ML AMP ONE (10:25)
[2023-04-07] MEDS: LACTATED RINGERS 1,000 ML IV ONE (11:18)
--- NOTE | 2023-04-07 11:49 | P.OP ---
Date of Procedure: 04/07/23 Procedure(s) Performed: PREOPERATIVE DIAGNOSIS: Acute appendicitis POSTOPERATIVE DIAGNOSIS: Same PROCEDURE: Laparoscopic appendectomy SURGEON: Katarina EBL: 25 cc ANESTHESIA: General COMPLICATIONS: None OPERATIVE PROCEDURE: The patient was brought and placed on the operating table in the supine position. The patient was placed under general anesthesia. The abdomen was prepped and draped in the usual sterile fashion. A small vertical infraumbilical incision was made. The fascia was retracted anteriorly with Agnieszka forceps. The Veress needle was advanced into the peritoneal cavity. The saline drop test was normal. Insufflation took place to 15 mmHg. A 5 mm trocar was then placed. An additional 5 mm suprapubic trocar was placed under direct visualization as well as a 12 mm left lower quadrant trocar under direct visualization. The appendix was inspected. It was acutely inflamed. The liver was also inspected. No outward abnormalities to correlate with the larger right hepatic cyst was noted. The appendix was then addressed. The mesoappendix was dissected. LigaSure was used to divide the mesoappendix. A small vessel in the mesentery of the appendix was oozing and this was quickly controlled using a 12 mm clipper. The base of the appendix was divided using a linear 45 mm intestin al stapler. The area was then irrigated. No further purulence or bleeding was seen. The appendix was brought out of the peritoneal cavity through the left lower quadrant trocar site with an Endo Catch bag. The fascia at the 12 mm site was closed using a Sonny-Uche 0 Vicryl stitch. The skin at all 3 sites was closed using 4-0 Monocryl sutures. Skin glue was then applied. DISPOSITION: Stable to recovery room
[2023-04-07] MEDS: HEPARIN SODIUM,PORCINE 5,000 UNIT/ML 1 ML VIAL SQ SCH (15:19)
[2023-04-07] MEDS: HYDROcodone/APAP 5-325MG 1 EACH TAB PO PRN (16:14)
[2023-04-07] MEDS: OSELTAMIVIR 60 MG/10 ML ORAL SYRINGE PO SCH (21:02)
[2023-04-08] MEDS: PANTOPRAZOLE 40 MG/10 ML VIAL IVP SCH (08:13)
[2023-04-08] MEDS: MULTIVITAMINS, THERA 1 EACH TAB PO SCH (10:46)
[2023-04-08] MEDS: CITALOPRAM HYDROBROMIDE 20 MG TAB PO SCH (10:47)
[2023-04-08 11:21] LABS: Basophils % (A) 0 %; Eosinophils % (A) 0 %; HCT 33.7 % (34.0-46.0); HGB 11.2 gm/dL (11.4-16.0); Lymphocytes # (A) 1.9 k/uL (1.0-4.8); Lymphocytes % (A) 21 %; MCH 29.8 pg (25.0-35.0); MCHC 33.1 g/dL (31.0-37.0); Mean Platelet Volume 7.8; Monocytes # (A) 0.5 k/uL (0-1.0); Monocytes % (A) 6 %; Neutrophils # (A) 6.4 k/uL (1.3-7.7); Neutrophils % (A) 71 %; Platelet Count 218 k/uL (150-450); RBC 3.74 m/uL (3.80-5.40); RDW 13.7 % (11.5-15.5)
[2023-04-08] MEDS ORDERED: KETOROLAC 15 MG/ML 1 ML VIAL IVP PRN (14:41)
--- NOTE | 2023-04-08 14:45 | P.PN ---
Subjective Progress Note Date: 04/08/23 CHIEF COMPLAINT: Acute appendicitis HISTORY OF PRESENT ILLNESS: Postop day #1 status post laparoscopic appendectomy. Patient complains of abdominal pain. She does report her pain has improved since admission. Rates her pain about a 2 out of 10 with some increase in pain with movement. Denies any flatus. Reports decreased appetite this morning. She only drank a few sips of her alfredo asif and water. She has only ambulated short distances to the bathroom. Afebrile. WBC is down from 14-9 Hgb 11.2 platelets 218 PHYSICAL EXAM: VITAL SIGNS: Reviewed. GENERAL: Well-developed in no acute distress. ABDOMEN: Soft. Nondistended. Tender incision sites NEUROLOGIC: Alert and oriented. Cranial nerves II through XII grossly intact. ASSESSMENT: 1. Acute appendicitis status post laparoscopic appendectomy 2. Influenza A positive PLAN: -Anticipate discharge tomorrow -Agree with adding Toradol to help with pain -Continue pain management -Encourage patient to ambulate. Consult physical therapy -Advance diet as tolerated -Continue antibiotics for now. No antibiotics needed at discharge. -GI prophylaxis Protonix and DVT prophylaxis subcu heparin Physician Electronic Development Technician note has been reviewed by physician. Signing provider agrees with the documented findings, assessment, and plan of care. I have personally seen and examined the patient, reviewed the FILENET P8 DEVELOPER /PAs history, exam and MDM and agree with the assessment and plan as written. Based on total visit time, I have performed more than 50% of the visit. As above: Patient doing better today. Pain is improved. White blood cell count has normalized. She is afebrile. Continue antibiotics. Advance diet to regular. Possible discharge tomorrow if doing well. Objective - Vital Signs Vital signs: Vital Signs Temp 98.3 F 04/08/23 07:00 Pulse 61 04/08/23 08:00 Resp 19 04/08/23 07:00 BP 116/72 04/08/23 07:00 Pulse Ox 95 04/08/23 06:48 FiO2 Intake & Output 04/07/23 04/08/23 04/08/23 18:59 06:59 18:59 Intake Total 1200 480 Output Total 25 Balance 1175 480 Weight 61.689 kg Intake: IV 1200 Oral 480 Output: Estimated Blood Loss 25 Other: Voiding Method Toilet # Voids 4 - Labs CBC & Chem 7: 04/08/23 10:58 04/07/23 09:08 Labs: Abnormal Lab Results - Last 24 Hours (Table) 04/08/23 Range/Units 10:58 RBC 3.74 L (3.80-5.40) m/uL Hgb 11.2 L (11.4-16.0) gm/dL Hct 33.7 L (34.0-46.0) %
--- NOTE | 2023-04-08 14:46 | P.CONS ---
History of Present Illness - Reason for Consult Consult date: 04/08/23 Medical management, status post appendectomy, influenza - History of Present Illness This is a pleasant 67-year-old female who presented to the emergency department with abdominal pain along with nausea and chills. Patient was admitted under general surgery services for acute appendicitis. Patient was also noted to be acute influenza positive and was started on Tamiflu. Patient reports she follows with Dr. Singh in the outpatient setting with a past medical history of hyperlipidemia, anxiety. Patient denies smoking alcohol or illicit drug use. On admission patient did have a white count of 22.7 and was acute influenza A positive other labs reviewed and within normal limits. Patient is status post laparoscopic appendectomy, postop day 2. Patient with significant weakness and encouraged the patient to increase activity as tolerated. Patient is on clear liquids and to advance as tolerated and patient reports she has only been drinking. Patient encouraged incentive spirometer use at least 10 times every hour while awake and increased activity as tolerated. Will also add Toradol and discussed with the patient along with nursing staff about limiting narcotic use especially Dilaudid. REVIEW OF SYSTEMS: CONSTITUTIONAL: No fever, no malaise, no fatigue. HEENT: No recent visual problems or hearing problems. Denied any sore throat. CARDIOVASCULAR: No chest pain, orthopnea, PND, no palpitations, no syncope. PULMONARY: No shortness of breath, no cough, no hemoptysis. GASTROINTESTINAL: No diarrhea, no nausea, no vomiting, reports some mild abdominal pain. NEUROLOGICAL: No headaches, no weakness, no numbness. HEMATOLOGICAL: Denies any bleeding or petechiae. GENITOURINARY: Denies any burning micturition, frequency, or urgency. MUSCULOSKELETAL/RHEUMATOLOGICAL: Denies any joint pain, swelling, or any muscle pain. ENDOCRINE: Denies any polyuria or polydipsia. The rest of the 14-point review of systems is negative. PHYSICAL EXAMINATION: GENERAL: The patient is alert and oriented x3, Well developed, well nourished. Elderly appearing HEENT: Pupils are round and equally reacting to light. EOMI. No scleral icterus. No conjunctival pallor. Normocephalic, atraumatic. No pharyngeal erythema. No thyromegaly. CARDIOVASCULAR: S1 and S2 present. No murmurs, rubs, or gallops. PULMONARY: Chest is clear to auscultation, no wheezing or crackles. ABDOMEN: Soft, mildly tender, nondistended, normoactive bowel sounds. No palpable organomegaly. MUSCULOSKELETAL: No joint swelling or deformity. EXTREMITIES: No cyanosis, clubbing, or pedal edema. NEUROLOGICAL: Gross neurological examination did not reveal any focal deficits. Diffusely weak SKIN: No rashes. Assessment: Acute appendicitis status post laparoscopic appendectomy Acute influenza A infection History of anxiety History of hyperlipidemia GI prophylaxis DVT prophylaxis Full code Plan: Patient was admitted under surgery for acute appendicitis status post laparoscopic appendectomy Patient currently on clear liquids and encourage the patient to advance to regular diet as tolerated. Patient reports has not tried much than drinking. Encouraged to increase activity as tolerated and frequent walking Will add incentive spirometer and encouraged the patient to use at least 10 times every hour while awake Recommend limiting narcotic use and discussed with the patient about avoiding IV Dilaudid if necessary and will add Toradol and continue with as needed [place] on a severe pain basis Home medications reviewed and resumed Patient will continue on Tamiflu and if being discharged home tomorrow as anticipated, then a prescription has been provided to continue for the next 3 days to complete the course of Tamiflu Recommend outpatient follow-up with primary care provider on discharge We will continue to follow with general surgery during hospitalization. Thank you kindly for this consultation. The impression and plan of care has been dictated by Jane Teixeira, Nurse Practitioner as directed. Dr. Magaly MD I have performed a history and examination and MDM of this patient, discussed the same with the dictator, and agree with the dictator's assessment and plan as written ,documented as a scribe. Based on total visit time, I have performed more than 50% of the visit. Past Medical History Past Medical History: Hyperlipidemia Additional Past Medical History / Comment(s): "racing heart" History of Any Multi-Drug Resistant Organisms: None Reported Past Surgical History: Adenoidectomy, Section, Hysterectomy, Orthopedic Surgery Past Psychological History: Anxiety Smoking Status: Never smoker Past Alcohol Use History: Occasional Past Drug Use History: None Reported Medications and Allergies Home Medications Medication Instructions Recorded Confirmed Type ALPRAZolam [Xanax] 0.25 mg PO TID PRN 04/06/23 04/06/23 History Citalopram Hydrobromide [CeleXA] 40 mg PO DAILY 04/06/23 04/06/23 History Elderberry Fruit [Elderberry] 350 mg PO DAILY 04/06/23 04/06/23 History Multivitamins, Thera [Multivitamin 1 tab PO DAILY 04/06/23 04/06/23 History (formulary)] Omeprazole 20 mg PO DAILY 04/06/23 04/06/23 History traZODone HCL [Desyrel] 50 mg PO HS 04/06/23 04/06/23 History Allergies Allergy/AdvReac Type Severity Reaction Status Date / Time azithromycin Allergy Unknown Verified 04/07/23 10:22 [From ZithrOpenNewsx Z-Bhupinder] erythromycin base Allergy Unknown Verified 04/07/23 10:22 morphine Allergy Hallucinati Verified 04/07/23 10:22 ons prednisone Allergy Unknown Verified 04/07/23 10:22 Physical Exam Vitals: Vital Signs Temp Pulse Pulse Resp BP Pulse Ox 04/08/23 06:48 98.3 F 61 19 116/72 95 04/08/23 01:32 98.1 F 60 21 111/67 90 L 04/07/23 20:07 98.3 F 57 L 21 107/65 90 L 04/07/23 18:10 99.4 F 67 17 105/64 93 L 04/07/23 16:25 55 L 103/60 94 L 04/07/23 15:25 62 107/65 95 04/07/23 14:55 54 L 103/61 95 04/07/23 14:25 57 L 103/61 94 L 04/07/23 14:10 58 L 109/65 92 L 04/07/23 13:55 55 L 107/63 95 04/07/23 13:25 99.3 F 66 16 115/63 93 L 04/07/23 12:33 73 16 121/69 93 L 04/07/23 12:18 96 16 115/63 93 L 04/07/23 12:03 99 16 118/60 93 L 04/07/23 11:48 113 H 16 128/62 98 04/07/23 11:33 97.8 F 113 H 16 132/65 97 04/07/23 10:06 98.5 F 69 20 117/67 94 L Intake and Output 04/07/23 04/08/23 04/08/23 22:59 06:59 14:59 Intake Total 480 Balance 480 Intake: Oral 480 Other: Voiding Method Toilet # Voids 4 Results CBC & Chem 7: 04/08/23 10:58 04/07/23 09:08 Labs: Abnormal Lab Results - Last 24 Hours (Table) 04/07/23 Range/Units 09:08 Chloride 115 H (98-107) mmol/L Carbon Dioxide 21 L (22-30) mmol/L BUN 18 H (7-17) mg/dL AST 38 H (14-36) U/L Total Protein 5.8 L (6.3-8.2) g/dL Albumin 3.3 L (3.5-5.0) g/dL
--- NOTE | 2023-04-09 15:02 | P.PN ---
Subjective Progress Note Date: 04/09/23 NAEON. Mild nausea but no emesis. No F/C. NO SOB or CP but does endorse dry cough with one time small amount of hemoptysis. Ambulatory and voiding. Admits to flatus, no BM. Tolerating diet. Objective - Vital Signs Vital signs: Vital Signs Temp 98.9 F 04/09/23 14:19 Pulse 54 L 04/09/23 14:19 Resp 17 04/09/23 14:19 BP 117/72 04/09/23 14:19 Pulse Ox 95 04/09/23 14:19 FiO2 Intake & Output 04/08/23 04/09/23 04/09/23 18:59 06:59 18:59 Intake Total 1350 Balance 1350 Intake: Oral 1350 Other: Voiding Method Toilet # Voids 3 2 - Exam Gen: AxO, NAD Pulm: non-labored respirations Abd: soft, moderately -tender around incisions, mildly-distended. No guarding/rebound/rigidity Extrem: no edema seen - Labs CBC & Chem 7: 04/08/23 10:58 04/07/23 09:08 Assessment and Plan Assessment: Patient is a 67 year old female who is s/p laparoscopic appendectomy with concomitant influenza infection Plan: -Diet as tolerated -Continue IVF hydration -PRN pain and nausea control -Encourage ambulation -DVT/GI PPx -Potential DC tomorrow; patient with abdominal distention and mild nausea consistent with postop ileus Edu Pendleton MD General Surgery
[2023-04-10 07:53] VITALS: RESP 18
[2023-04-10 10:21] LABS: BUN/Creat Ratio 9.67 Ratio (12.00-20.00); Blood Urea Nitrogen 8.7 mg/dL (9.0-27.0); Calcium 8.6 mg/dL (8.7-10.3); Carbon Dioxide 24.6 mmol/L (21.6-31.8); Chloride 108 mmol/L (96-109); Glucose 90 mg/dL (70-110); Potassium 3.7 mmol/L (3.5-5.5); Sodium 143 mmol/L (135-145)
[2023-04-10 12:00] LABS: Basophils # (A) 0.05 X 10*3/uL (0.00-0.10); Basophils % (A) 0.8 %; Eosinophils # (A) 0.18 X 10*3/uL (0.04-0.35); Eosinophils % (A) 2.8 %; HCT 34.6 % (37.2-46.3); HGB 11.2 g/dL (12.0-15.0); Lymphocytes % (A) 22.1 %; MCH 29.1 pg (27.0-32.0); MCHC 32.4 g/dL (32.0-37.0); MCV 89.9 FL (80.0-97.0); Mean Platelet Volume 10.3 FL (9.5-12.2); Monocytes # (A) 0.73 X 10*3/uL (0.20-1.00); Monocytes % (A) 11.5 %; NRBC Per 100 WBC 0 X 10*3/uL (0.00-0.01); Neutrophils # (A) 3.86 X 10*3/uL (1.80-7.70); Neutrophils % (A) 60.9 %; Platelet Count 253 X 10*3/uL (140-440); RBC 3.85 X 10*6/uL (4.10-5.20); WBC 6.34 X 10*3/uL (4.50-10.00)
--- NOTE | 2023-04-10 12:19 | P.DS ---
Providers Date of admission: 04/06/23 18:18 Expected date of discharge: 04/10/23 Attending physician: Polo Bray Consults: 04/07/23 11:37 Consult Physician Routine Consulting Provider: Jose J Salas Consult Reason/Comments: Medical management influenza Do you want consulting provider notified?: Yes Primary care physician: Jennifer Singh [facility] Course: Patient was admitted to the hospital with acute appendicitis and influenza A. Underwent laparoscopic appendectomy. Has done well since surgery. Pain gradually improved. Tolerating diet. No fevers. No shortness of breath. She thinks she is ready for discharge at this time. Will plan discharge if cleared by medicine. Outpatient follow-up. No need for antibiotics postdischarge. Patient Condition at Discharge: Fair Plan - Discharge Summary Discharge Rx Participant: Yes New Discharge Prescriptions: New Ibuprofen [Motrin] 600 mg PO Q8HR PRN #30 tab PRN Reason: Pain Oseltamivir 6Mg/ml Oral Susp [Tamiflu] 30 mg PO Q12HR 3 Days #6 each HYDROcodone/APAP 5-325MG [[place] 5-325] 1 tab PO Q6HR PRN 3 Days #12 tab PRN Reason: Pain Docusate [Colace] 100 mg PO BID #30 capsule Continue Multivitamins, Thera [Multivitamin (formulary)] 1 tab PO DAILY traZODone HCL [Desyrel] 50 mg PO HS Omeprazole 20 mg PO DAILY Citalopram Hydrobromide [CeleXA] 40 mg PO DAILY ALPRAZolam [Xanax] 0.25 mg PO TID PRN PRN Reason: Anxiety Elderberry Fruit [Elderberry] 350 mg PO DAILY Discontinued Celecoxib [CeleBREX] 200 mg PO ONCE PRN PRN Reason: Pain Discharge Medication List ALPRAZolam [Xanax] 0.25 mg PO TID PRN 04/06/23 [History] Citalopram Hydrobromide [CeleXA] 40 mg PO DAILY 04/06/23 [History] Elderberry Fruit [Elderberry] 350 mg PO DAILY 04/06/23 [History] Multivitamins, Thera [Multivitamin (formulary)] 1 tab PO DAILY 04/06/23 [History] Omeprazole 20 mg PO DAILY 04/06/23 [History] traZODone HCL [Desyrel] 50 mg PO HS 04/06/23 [History] Docusate [Colace] 100 mg PO BID #30 capsule 04/08/23 [Rx] HYDROcodone/APAP 5-325MG [[place] 5-325] 1 tab PO Q6HR PRN 3 Days #12 tab 04/08/23 [Rx] Ibuprofen [Motrin] 600 mg PO Q8HR PRN #30 tab 04/08/23 [Rx] Oseltamivir 6Mg/ml Oral Susp [Tamiflu] 30 mg PO Q12HR 3 Days #6 each 04/08/23 [Rx] Follow up Appointment(s)/Referral(s): Polo Bray MD [Medical Doctor] - 1 Week Jennifer Singh MD [Primary Care Provider] - 1-2 days Activity/Diet/Wound Care/Special Instructions: No driving while taking [place] No lifting over 10 pounds You may shower. No soaking or tub baths for 2 weeks Very light activity until you are reevaluated at your follow up appointment with your surgeon Continue with Tamiflu for the next 3 days to complete the course Discharge Disposition: HOME SELF-CARE
[2023-04-10 16:05] VITALS: BP 115/63; PULSE 57; TEMP 98.9
== END 2023-04-10 16:03 | disposition home or self-care (01) | DRG 398 ==
LOC: EC 13:31 → 1SOBS 18:18 → 4SSUR 04-07 18:05
PROVIDERS: ADMIT Surgery; ATTEND Surgery
PROC: 0DTJ4ZZ Resection of Appendix, Percutaneous Endoscopic Approach (ICD-10-PCS; principal; 2023-04-07 16:55)
DX: K35.80 Unspecified acute appendicitis (principal); K56.7 Ileus, unspecified; K91.89 Other postprocedural complications and disorders of digestive system; J10.1 Influenza due to other identified influenza virus with other respiratory manifestations; F41.9 Anxiety disorder, unspecified; E78.5 Hyperlipidemia, unspecified; Z79.899 Other long term (current) drug therapy; Z88.1 Allergy status to other antibiotic agents; Z88.5 Allergy status to narcotic agent; Z88.8 Allergy status to other drugs, medicaments and biological substances
CPT/HCPCS: 36415; 71046; 74177; 80048; 80053; 81003; 82150; 83605; 83690; 83735; 84100; 84484; 85025; 85027; 87636; 88304; 96361; 96365; 96375; 96376; 99285

== ENCOUNTER → 2024-02-24 | Outpatient (CLI) | payer BC ==
--- NOTE | 2024-02-27 08:23 | MM ---
Reason for Exam: Screening (asymptomatic). Last screening mammogram was performed 12 month(s) ago. Patient History: Menarche at age 12. First Full-Term at age 22. Left ovary removed at age 48. Right ovary removed at age 48. Hysterectomy at age 48. Postmenopausal. Patient has history of breast feeding. Patient used Estrogen for 3 years. Patient used Hormonal Contraceptives for 20 years. Maternal cousin had breast cancer, age 46. Risk Values: Ly 5 year model risk: 1.5%. NCI Lifetime model risk: 4.8%. Prior Study Comparison: 10/27/2017 Bilateral Screening Mammogram, [facility]. 12/09/2018 Bilateral Screening Mammogram, [facility]. 10/10/2020 Bilateral Screening Mammogram, [facility]. 11/25/2021 Bilateral MG 3D screening mammo w/cad, [facility]. 02/21/2023 Bilateral MG 3D screening mammo w/cad, [facility]. Tissue Density: The breasts are heterogeneously dense, which may obscure small masses. Findings: Analyzed By CAD. There is no suspicious group of microcalcifications or new suspicious mass in either breast. Stable subcentimeter chronic nodularity right breast. Overall Assessment: Benign, BI-RAD 2 Management: Screening Mammogram of both breasts in 1 year. . Patient should continue monthly self-breast exams. A clinical breast exam by your physician is recommended on an annual basis. This exam should not preclude additional follow-up of suspicious palpable abnormalities. Note on Ly scores and lifetime risk: 1. A Ly score greater than 3% is considered moderate risk. If this is the case, consider specialist referral to assess eligibility for a risk reducing agent. 2. If overall lifetime risk for the development of breast cancer is 20% or higher, the patient may qualify for future screening with alternating mammogram and breast MRI. [facility], , 02/27/2024 8:21 AM. Electronically signed and approved by: James Story M.D. Radiologis
== END | disposition home or self-care (01) ==
LOC: RADMAMWWP 11:25
PROVIDERS: ATTEND Internal Medicine
DX: Z12.31 Encounter for screening mammogram for malignant neoplasm of breast (principal); Z78.0 Asymptomatic menopausal state; Z80.3 Family history of malignant neoplasm of breast; Z90.722 Acquired absence of ovaries, bilateral; R92.333 Mammographic heterogeneous density, bilateral breasts
CPT/HCPCS: 77063; 77067